=== PATIENT | male | born 1935 | race Caucasian/White ===

== ENCOUNTER 2023-11-16 10:59 | Outpatient (CLI) | payer MEDICARE, SELFPAY | END 2023-11-16 11:00 | disposition home or self-care (01) | LOC: AMB 12-01 16:29 | PROVIDERS: Visit Provider Emergency Medicine | DX: R53.1 Weakness (principal) | CPT/HCPCS: A0425; A0429 ==

== ENCOUNTER 2025-07-15 18:12 | Outpatient (CLI) | payer MEDICARE, SELFPAY | END 2025-07-15 18:13 | disposition home or self-care (01) | LOC: AMB 07-18 13:53 | PROVIDERS: Visit Provider Emergency Medicine Emergency Medical Services | DX: R53.1 Weakness (principal) | CPT/HCPCS: A0998 ==